=== PATIENT | female | born 1995 | race African-American/Black ===

== ENCOUNTER 2021-04-26 23:19 | Emergency (ER) | payer MEDICARE, MEDICAID ==
[~2021-04-26] VITALS: Ht 167.6 cm; Wt 54.0 kg
[2021-04-27 00:13] VITALS: BP 96/65
== END 2021-04-27 01:59 | disposition left against medical advice (07) ==
LOC: ER 23:19
DX: Z53.21 Procedure and treatment not carried out due to patient leaving prior to being seen by health care provider (principal)
CPT/HCPCS: 99281

== ENCOUNTER 2021-08-23 13:22 | Emergency (ER) | payer MEDICARE, MEDICAID ==
[~2021-08-23] VITALS: Ht 170.2 cm; Wt 55.0 kg
[2021-08-23 13:23] VITALS: BP 119/73
== END 2021-08-24 01:25 | disposition home or self-care (01) ==
LOC: ER 13:22
DX: H10.213 Acute toxic conjunctivitis, bilateral (principal); Z59.00 Homelessness unspecified; D64.9 Anemia, unspecified; J45.909 Unspecified asthma, uncomplicated; I95.9 Hypotension, unspecified
CPT/HCPCS: 99283

== ENCOUNTER 2022-07-15 23:00 | Emergency (ER) | payer MEDICARE, MEDICAID ==
[~2022-07-15] VITALS: Ht 167.6 cm; Wt 68.0 kg
[2022-07-15 23:04] VITALS: BP 110/78
[2022-07-16] MEDS ORDERED: HYDR-459 MT (09:28)
== END 2022-07-16 02:46 | disposition left against medical advice (07) ==
LOC: ER 23:00
DX: F41.9 Anxiety disorder, unspecified (principal); J45.909 Unspecified asthma, uncomplicated; D64.9 Anemia, unspecified; I95.9 Hypotension, unspecified
CPT/HCPCS: 99283

== ENCOUNTER 2022-07-16 05:01 | Emergency (ER) | payer MEDICARE, MEDICAID ==
[~2022-07-16] VITALS: Ht 167.6 cm; Wt 65.5 kg
[2022-07-16 09:22] VITALS: BP 129/77
[2022-07-16] MEDS ORDERED: HYDR-459 MT (09:28)
== END 2022-07-16 09:41 | disposition home or self-care (01) ==
LOC: ER 05:01
DX: F41.9 Anxiety disorder, unspecified (principal); J45.909 Unspecified asthma, uncomplicated; I49.9 Cardiac arrhythmia, unspecified
CPT/HCPCS: 93005; 99283

== ENCOUNTER 2024-04-06 21:28 | Emergency (ER) | payer MEDICARE, MEDICAID ==
[~2024-04-06] VITALS: Ht 165.1 cm; Wt 70.0 kg
[~2024-04-06 21:28] MED LIST: HYDR-459 MT
[2024-04-06 22:04] VITALS: BP 104/62; PULSE 85; RESP 16; TEMP 98.7; O2SAT 100
[2024-04-07 02:24] LABS: BASOPHILS % 0.7 % (0.0-2.0); DIFFERENTIAL COMMENT 0; EOSINOPHILS % 0.2 % (0.0-5.0); HEMOGLOBIN. 14.3 g/dL (12.0-16.0); MEAN CORPUSCULAR HEMOGLOBIN 23.9 pg (28.0-32.0); MEAN CORPUSCULAR HGB CONC 31.8 g/dL (31.0-37.0); MEAN CORPUSCULAR VOLUME 75.2 fL (81.0-99.0); MEAN PLATELET VOLUME 8.1 fl (7.4-10.4); MONOCYTES % 8.4 % (2.0-8.0); NEUTROPHILS % 55.7 % (40.0-76.0); PLATELET 262 x1000/uL (130-400); RED BLOOD CELL COUNT 5.98 mill/uL (4.2-5.4); RED CELL DISTRIBUTION WIDTH 15.8 % (11.6-14.6); WHITE BLOOD COUNT 6.4 x1000/uL (4.5-11.0)
[2024-04-07 03:05] LABS: CARBON DIOXIDE 27 mEq/L (21-32); CHLORIDE 106 mEq/L (98-107); POTASSIUM 4.1 mEq/L (3.5-5.1); SODIUM 140 mEq/L (136-145)
[2024-04-07 03:06] LABS: CALCIUM 9.8 mg/dL (8.7-10.4)
[2024-04-07 03:10] LABS: CREATININE 0.7 mg/dL (0.6-1.0)
[2024-04-07 03:11] LABS: GLUCOSE 96 mg/dL (70-105)
[2024-04-07 03:51] LABS: HCG SCREEN NEGATIVE
[2024-04-07 03:55] LABS: UREA NITROGEN BLOOD < 5 mg/dL (9-23)
[2024-04-07 04:14] LABS: CLARITY URINE CLOUDY (CLEAR); COLOR URINE YELLOW (YELLOW); GLUCOSE URINE NEGATIVE (NEGATIVE); KETONES URINE NEGATIVE (NEGATIVE); LEUKOCYTE ESTERASE URINE NEGATIVE (NEGATIVE); NITRITE URINE NEGATIVE (NEGATIVE); OCCULT BLOOD URINE NEGATIVE (NEGATIVE); PROTEIN URINE NEGATIVE (NEGATIVE); SPECIFIC GRAVITY URINE 1.013 (1.005-1.030); UROBILINOGEN URINE 0.2 E.U./dL (0.2-1.0)
[2024-04-07 05:42] LABS: SQUAMOUS EPITHELIAL CELL URINE 1+ /lpf (RARE/1+)
[2024-04-07 05:43] LABS: RBC URINE 0-2 /hpf (0-2); WBC URINE 0-2 /hpf (0-2)
[2024-04-07 05:45] LABS: BACTERIA URINE TRACE
== END 2024-04-07 04:55 | disposition home or self-care (01) ==
LOC: ER 21:28
DX: R42 Dizziness and giddiness (principal); F20.9 Schizophrenia, unspecified; F41.9 Anxiety disorder, unspecified; F10.90 Alcohol use, unspecified, uncomplicated; Y90.9 Presence of alcohol in blood, level not specified
CPT/HCPCS: 36415; 80048; 81003; 84703; 85025; 99283